=== PATIENT | female | born 1950 | race Caucasian/White ===

== ENCOUNTER 2019-07-02 07:45 | Emergency (ER) | payer OTHER ==
[~2019-07-02] VITALS: Ht 167.6 cm; Wt 79.4 kg
[2019-07-02] MEDS ORDERED: VITAMIN D1000 UNIT (07:59)
[2019-07-02] MEDS ORDERED: DICY20TA PO (11:56)
[2019-07-02] MEDS ORDERED: PROTONIX40 MG PO (11:56)
[2019-07-02] MEDS ORDERED: KEFLEX500 MG PO (11:56)
== END 2019-07-02 12:12 | disposition home or self-care (01) ==
LOC: ER 07:45
DX: K21.9 Gastro-esophageal reflux disease without esophagitis (principal); N39.0 Urinary tract infection, site not specified; K57.30 Diverticulosis of large intestine without perforation or abscess without bleeding

== ENCOUNTER 2019-07-24 18:56 | Inpatient (IN) | payer OTHER ==
[~2019-07-24] VITALS: Ht 7.6 cm; Wt 5.0 kg
[~2019-07-24 18:56] MED LIST: DICY20TA PO; KEFLEX500 MG PO; PROTONIX40 MG PO; VITAMIN D1000 UNIT
--- NOTE | 2019-07-24 21:46 | NUR ---
PACIENTE EVALUADA POR DRA HERNANDEZ. MS SEBASTIAN ORIENTA A PACIENTE SOBRE ORDENES MEDICAS, REFIERE COMPRENDER. COLECTA MUESTRAS DE LABORATORIO ORDENADAS, CANALIZA PACIENTE Y ADMINISTRA MEDICAMENTOS BAJO MEDIDAS ASEPTICAS. PENDIENTE A RESULTADOS DE LABORATORIO Y SONOGRAMA PARA RE-EVALUACION MEDICA.
--- NOTE | 2019-07-24 23:50 | NUR ---
MISS PHILLIPS ORIENTA AL PACIENTE Y HETAL SOBRE TRATAMIENTO MEDICO EL CUAL REFIERE ENTENDER, Y ADMNIISTRA MEDICAMENTO PARA EL DOLOR YUSUF ORDEN MEDICA.
--- NOTE | 2019-07-25 07:00 | NUR ---
7:00AM- PACIENTE ALERTA Y ORIENTADA POR CLIVE ESFERAS EN LIGIA EN COMPANIA DE FAMILIAR. SE OBSERVA IVF'S PATENTE EMILIANO DE EDEMA Y ENORJECIMIENTO BAJANDO UN .9NSS @ 125ML/HR. PACIENTE CON BUEN PATRON RESPIRATORIO Y PIEL TIBIA AL TACTO. PENDIENTE CONSULTA CON DR. Janet MALIK. 9:40AM- SE ADMINISTRA MEDICAMENTOS YUSUF ORDEN MEDICA. SE ORIENTA A PACIENTE SOBRE EL MISMO.
[2019-08-04] MEDS ORDERED: ULTRACET PO (09:49)
[2019-08-04] MEDS ORDERED: PANTOPRAZOLE SO40 MG PO (09:49)
== END 2019-08-04 10:28 | disposition home or self-care (01) | DRG 417 ==
LOC: ER 18:56 → SEC-K 07-25 10:07 → MEDJ 07-25 10:07
PROVIDERS: Surgery; ADMIT Internal Medicine
PROC: BF37ZZZ Magnetic Resonance Imaging (MRI) of Pancreas (ICD-10-PCS; 2019-07-25)
PROC: 02HV33Z Insertion of Infusion Device into Superior Vena Cava, Percutaneous Approach (ICD-10-PCS; 2019-07-29)
PROC: 0FT44ZZ Resection of Gallbladder, Percutaneous Endoscopic Approach (ICD-10-PCS; principal; 2019-08-01 09:15)
DX: K80.80 Other cholelithiasis without obstruction (principal); K85.80 Other acute pancreatitis without necrosis or infection; N39.0 Urinary tract infection, site not specified; J98.11 Atelectasis; E87.6 Hypokalemia; E86.0 Dehydration; E87.8 Other disorders of electrolyte and fluid balance, not elsewhere classified; K21.9 Gastro-esophageal reflux disease without esophagitis; R10.11 Right upper quadrant pain

== ENCOUNTER 2020-10-04 09:16 | Day surgery (SDC) | payer OTHER ==
[~2020-10-04 09:16] MED LIST changes: +PANTOPRAZOLE SO40 MG PO; +ULTRACET PO
== END 2020-10-04 13:55 | disposition home or self-care (01) ==
LOC: AMB-ENDOS 09:16
PROVIDERS: ATTEND Surgery
DX: D12.5 Benign neoplasm of sigmoid colon (principal); Z20.828 Contact with and (suspected) exposure to other viral communicable diseases; K64.1 Second degree hemorrhoids

== ENCOUNTER 2021-08-26 08:12 | Emergency (ER) | payer OTHER ==
[~2021-08-26] VITALS: Ht 165.1 cm; Wt 81.6 kg
[2021-08-26] MEDS ORDERED: PROTONIX20 MG PO (08:28)
[2021-08-26] MEDS ORDERED: ZITHROMAX500 MG PO (12:18)
== END 2021-08-26 12:30 | disposition home or self-care (01) ==
LOC: ER 08:12
DX: B34.9 Viral infection, unspecified (principal); Z20.822 Contact with and (suspected) exposure to COVID-19